=== PATIENT | female | born 1950 | race Caucasian/White ===

== ENCOUNTER 2017-12-02 05:24 | Day surgery (SDC) | payer OTHER ==
[~2017-12-02] VITALS: Ht 157.5 cm; Wt 79.4 kg
[2017-12-02 07:05] VITALS: BP 141/78
[2017-12-02 10:23] VITALS: BP 124/79
[2017-12-02 10:39] VITALS: BP 124/79
[2017-12-02 16:16] VITALS: BP 119/62
[2017-12-02 20:41] VITALS: BP 107/62
[2017-12-03 05:33] VITALS: BP 153/99
[2017-12-03 06:03] VITALS: BP 118/64
[2017-12-03 09:53] VITALS: BP 117/59
[2017-12-03 10:17] VITALS: BP 117/59
[2017-12-03 11:56] VITALS: BP 117/59
== END 2017-12-03 13:03 | disposition home or self-care (01) ==
LOC: DS 05:24 → OR 07:30 → DS 07:30 → MU 09:47 → DS 12-03 13:03
PROVIDERS: Neuromusculoskeletal Medicine, Sports Medicine
PROC: 0RNK0ZZ Release Left Shoulder Joint, Open Approach (ICD-10-PCS; 2017-12-02)
PROC: 0LM20ZZ Reattachment of Left Shoulder Tendon, Open Approach (ICD-10-PCS; principal; 2017-12-02 07:30)
DX: M75.122 Complete rotator cuff tear or rupture of left shoulder, not specified as traumatic (principal); M75.52 Bursitis of left shoulder; K21.9 Gastro-esophageal reflux disease without esophagitis; M81.0 Age-related osteoporosis without current pathological fracture; M79.7 Fibromyalgia
CPT/HCPCS: C1713; J0690; J1170; J2270; J2405; J2704; J2710; J3010; J3490; J7120